=== PATIENT | male | born 1955 | race Asian ===

== ENCOUNTER 2018-11-12 09:48 | Day surgery (SDC) | payer OTHER ==
[2018-11-11 15:48] VITALS: BMI 28.0
[2018-11-12] MEDS ORDERED: MIDAZOLAM HCL 2 MG/2 ML SINGLE DOSE VIAL ONE (11:46)
[2018-11-12] MEDS ORDERED: SUCCINYLCHOLINE CHLORIDE 200 MG/10 ML SYRINGE ONE (11:58)
[2018-11-12] MEDS ORDERED: PROPOFOL 20 ML ONE ×2 (11:58)
[2018-11-12] MEDS ORDERED: ceFAZolin SODIUM 1 GM VIAL IVPB ONE (12:03)
[2018-11-12] MEDS ORDERED: ONDANSETRON 4 MG/2 ML VIAL IVPUSH PRN (13:08)
[2018-11-12] MEDS ORDERED: PROMETHAZINE HCL 25 MG/1 ML VIAL IVPB PRN (13:08)
[2018-11-12] MEDS ORDERED: oxyCODONE HCL 5 MG TABLET PO PRN (13:08)
[2018-11-12] MEDS ORDERED: LACTATED RINGERS SOLUTION 1,000 ML IV SCH (13:15)
[2018-11-12] MEDS ORDERED: ELECTROLYTE-148 SOLN 1,000 ML IV SCH (13:30)
[2018-11-12] MEDS ORDERED: oxyCODONE HCL 5 MG TABLET ONE (13:49)
[2018-11-12 14:35] VITALS: PULSE 92
--- NOTE | 2018-11-12 22:05 | OP ---
DATE OF OPERATION: 11/12/2018 PREOPERATIVE DIAGNOSIS: Bladder stone, benign prostatic hypertrophy. POSTOPERATIVE DIAGNOSIS: Bladder stone, benign prostatic hypertrophy. PROCEDURE: Cystoscopy, bipolar laser of prostate, lithotripsy of bladder stone, bladder biopsy. BRIEF HISTORY: Patient is a very pleasant, 63-year-old gentleman with a long history of BPH, status post prior BPH procedure as an outpatient, most notably was a UroLift procedure. Patient developed a bladder stone and had some frequency postoperatively; however, he was unobstructed and emptied his bladder basically to completion. Cystoscopy noted an area of redness in the posterior left side of the bladder wall. All risks and benefits were discussed with the patient clearly. Informed consent was obtained. BRIEF OPERATIVE NOTE: Patient was brought to the operating room and placed in the supine position. General anesthesia was administered. Patient was transferred to the dorsal lithotomy position, prepped and draped in the usual sterile fashion. Intravenous antibiotics were given. At this time, a 25-Faroese resectoscope sheath was placed into the bladder under direct vision. There were no urethral strictures. The prostate was sub-occlusive. There were 2 clips notable bilaterally, just proximal to the bladder neck. The left clip had a bladder stone, approximately 1 cm, attached to it. There was a second bladder stone within the urinary bladder. This was out of the way of the clips and the bladder neck. At this time, using a Holmium laser, the stones were fragmented. The stone attached to the clip was also fragmented and the Prolene stitch was lasered free. The clip was then removed without difficulty. At this time, a bladder biopsy was performed of the edematous area and given off. It appeared to be mostly inflammatory in nature and was approximately a 2 cm area of the posterior bladder wall. At this time, using the bipolar from the 10 to 6 and then 2 to 6 o'clock positions, the obstructing prostate tissue was fulgurated. The tissue approximately 1 cm proximal to the verumontanum was left intact. There was no evidence of active bleeding. There were no bladder fragments or bladder stones visible within the bladder at the termination of the procedure. All instruments were removed. The 20-Faroese Harris catheter was placed to straight drainage. Patient was brought to the recovery room in stable and satisfactory condition. FRANCO HIDALGO M.D. [id number]
--- NOTE | 2018-11-15 17:08 | PATH ---
Surgical Pathology Report Patient Name: MEETA ZAYAS [facility]. Rec. #: [id number] /Age/Gender: 1955 (Age: 63) / M Account: [id number] Location: U SURGICAL Taken: 11/12/2018 Received: 11/13/2018 Reported: 11/15/2018 Physicians: Bartolo Bear M.D. Specimen(s) Received BLADDER BIOPSY ANTERIOR WALL Clinical History BPH, cystitis, bladder stone Final Diagnosis BLADDER, ANTERIOR WALL, BIOPSY: SMALL FRAGMENT OF BLADDER MUCOSA WITH MILD CHRONIC (INTERSTITIAL) AND FOCAL ACUTE CYSTITIS. Electronically Signed Merna Porter M.D. Gross Description Received in formalin, labeled "bladder biopsy anterior wall" is a orozco, irregular portion of soft tissue measuring less than 0.1 cm. in greatest dimension. The specimen is submitted in toto in one cassette. /11/13/201811/13/2018
[2018-11-19 14:16] VITALS: BP 138/88; TEMP 97.8
== END 2018-11-12 15:15 | disposition home or self-care (01) ==
LOC: JASU-SURG 09:48
PROVIDERS: ATTEND Urology
PROC: 0VT08ZZ Resection of Prostate, Via Natural or Artificial Opening Endoscopic (ICD-10-PCS; principal; 2018-11-12 11:30)
PROC: 0TCB8ZZ Extirpation of Matter from Bladder, Via Natural or Artificial Opening Endoscopic (ICD-10-PCS; 2018-11-12 11:30)
PROC: 0TBB8ZX Excision of Bladder, Via Natural or Artificial Opening Endoscopic, Diagnostic (ICD-10-PCS; 2018-11-12 11:30)
DX: N21.0 Calculus in bladder (principal); N40.1 Benign prostatic hyperplasia with lower urinary tract symptoms; R35.0 Frequency of micturition; N30.00 Acute cystitis without hematuria; I10 Essential (primary) hypertension; E11.9 Type 2 diabetes mellitus without complications; Z79.84 Long term (current) use of oral hypoglycemic drugs
CPT/HCPCS: 82962; 88305-TC; 94760